=== PATIENT | female | born 1990 | race Caucasian/White ===

== ENCOUNTER 2016-07-22 09:18 | Emergency (ER) | payer MEDICAID, OTHER | END 2016-07-22 09:37 | disposition home or self-care (01) | LOC: ED 09:18 | DX: Z53.21 Procedure and treatment not carried out due to patient leaving prior to being seen by health care provider (principal) ==

== ENCOUNTER 2016-07-22 09:35 | Outpatient (CLI) | payer MEDICAID, OTHER ==
[2016-07-22 10:59] VITALS: BMI 31.4
[2016-07-22 11:07] LABS: SPECIFIC GRAVITY 1.015 (1.001-1.030); URINE BILIRUBIN NEGATIVE (NEGATIVE); URINE BLOOD NEGATIVE (NEGATIVE); URINE GLUCOSE (UA) NEGATIVE (NEGATIVE); URINE LEUKOCYTE ESTERASE TRACE (NEGATIVE); URINE NITRITE NEGATIVE (NEGATIVE); URINE PROTEIN TRACE (NEGATIVE); URINE UROBILINOGEN NORMAL (0-1 mg/dl)
[2016-07-22 11:08] LABS: URINE APPEARANCE SL CLOUDY; URINE COLOR YELLOW
[2016-07-22 11:14] LABS: URINE BACTERIA TRACE; URINE RBC 0 /hpf; URINE WBC 0-2 /hpf
[2016-07-22 11:45] LABS: HEMATOCRIT 35.3 % (37.0-47.0); MEAN CELL VOLUME 92.9 fl (81.0-99.0); MEAN CORPUSCULAR HEMOGLOBIN 31.6 pg (27.0-31.0); RED CELL DISTRIBUTION WIDTH 13.2 % (11.5-14.5)
[2016-07-22 12:05] LABS: ALBUMIN 3.4 gm/dL (3.5-5.7); CALCIUM 8.8 mg/dL (8.6-10.3)
--- NOTE | 2016-07-22 12:47 | US ---
LIMITED ABDOMINAL ULTRASOUND HISTORY: Right upper quadrant pain. 35 weeks gestation. Limited sonography of the right upper quadrant performed. FINDINGS: GALLBLADDER LENGTH: 5.6 cm. GALLBLADDER WALL THICKNESS: 2.1 mm. GALLBLADDER CONTENT: No stones or sludge identified. SONOGRAPHIC CASSIDY'S SIGN: Not elicited. COMMON BILE DUCT CALIBER: 3.2 mm. REGIONAL FREE FLUID: None. IMPRESSION: Normal sonographic appearance of the gallbladder. No findings of cholelithiasis, wall thickening, or biliary dilatation. A message was relayed to Dr. Pop of the referring clinical service on 07/22/16 at 1241 hours.
[2016-07-22] MEDS ORDERED: ACETAMINOPHEN 500 MG TABLET ONE (13:03)
[2016-07-22] MEDS ORDERED: ACETAMINOPHEN 500 MG TABLET PO PRN (13:05)
--- NOTE | 2016-07-22 19:15 | PDOC36 ---
Provider Note Subject: Pt is a 25 yo @ 35 1/7wks who comes in with RUQ pain since last night. Admits to having vomited. Has not eaten anything since yesterday. Denies any uterine contractions, admits to good FM, no abnl vaginal d/c, no LOF or VB, no dysuria. O: BP 107/67 HR 84 RR 16 T36.6 Gen: NAD but mildly low energy Abdomen: gravid, non-tender over uterus, however with tenderness to palpation in RUQ [place]: no ctxs FHTs: 135 baseline, moderate variability, +accels, -decels CBC/CMP/Lipase all within normal RUQ u/s: did not demonstrate any gallstones. A/P: 25 yo @ 35 1/7wks with RUQ pain that mostly subsided on FBC and no cholelithiasis or cholecystitis found, pain likely due to movement or mild gastroenteritis. She was given food and water as well as Tylenol 1000mg x 1. Advised to eat regular meals, hydrate adequately, take Tylenol PRN and f/u in clinic for her next scheduled clinic visit.
== END 2016-07-22 14:10 | disposition home or self-care (01) ==
LOC: FBCOUT 09:35 → FBC 09:35 → FBCOUT 14:10
PROVIDERS: ATTEND Family Medicine
DX: O26.893 Other specified pregnancy related conditions, third trimester (principal); R10.11 Right upper quadrant pain; O21.2 Late vomiting of pregnancy; Z3A.35 35 weeks gestation of pregnancy
CPT/HCPCS: 83690; 85027; 80053; 81001; 76705; 59025; A9270; G0463